=== PATIENT | male | born 1975 | race Caucasian/White ===

== ENCOUNTER → 2021-01-07 | Emergency (ER) | payer SELFPAY ==
[~2021-01-07] MED LIST: NARCAN4 MG INH
[2021-01-07 22:02] LABS: HEMOGLOBIN 14.2 gm/dl (14.0-17.5); RED BLOOD COUNT 4.68 M/UL (4.20-5.50); WHITE BLOOD COUNT 24.2 K/UL (4.5-11.0)
[2021-01-07 22:30] LABS: BUN/CREATININE RATIO 14 (0-10)
== END | disposition home or self-care (01) ==
LOC: ER1 21:41
PROVIDERS: Student in an Organized Health Care Education/Training Program
DX: T40.1X1A Poisoning by heroin, accidental (unintentional), initial encounter (principal); I10 Essential (primary) hypertension; F17.210 Nicotine dependence, cigarettes, uncomplicated; Z79.899 Other long term (current) drug therapy; R09.2 Respiratory arrest
CPT/HCPCS: 71045; 80053; 80307; 82550; 82553; 82803; 83605; 83690; 83735; 83874; 84100; 84439; 84443; 84484; 85025; 93005; 99284; G0480; J2310; J7030